=== PATIENT | male | born 1965 | race Caucasian/White ===

== ENCOUNTER 2017-03-13 19:33 | Emergency (ER) | payer BC | END 2017-03-13 20:15 | disposition left against medical advice (07) | LOC: ED 19:33 | DX: Z53.9 Procedure and treatment not carried out, unspecified reason (principal) ==

== ENCOUNTER 2020-12-11 02:16 | Emergency (ER) | payer BC ==
[2020-12-11] MEDS ORDERED: Sodium Chloride 0.9% 1000 ML 1,000 ML IV SCH (03:00)
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
[2020-12-11] MEDS ORDERED: Sodium Chloride 0.9% 1000 ML 1,000 ML ONE (03:04)
[2020-12-11 03:20] LABS: BASOPHIL % 0.3 % (0.0-0.4); Basophil (Absolute #) 0.02 (0-0.4); Eosinophil % 3.3 % (0.00-5.0); Eosinophil (Absolute #) 0.24 (0-0.5); Hematocrit 40.8 % (42-50); Hemoglobin 13.9 gm/dl (12.5-18.0); Lymphocyte (Absolute #) 3.01 (1.0-4.6); Mean Cell Volume 93.6 fl (78-100); Mean Corpuscular Hemoglobin 31.9 pg (26-32); Mean Corpuscular Hgb Concent. 34.1 g/dl (32-36); Mean Platelet Volume 9.6 fl (7.5-11.0); Monocyte (Absolute #) 0.98 (0.0-1.3); Monocytes % 13.3 % (0.0-12.0); Neutrophil % 42.1 % (36.0-66.0); Platelet Count 224 K/mm3 (150-450); Red Blood Count 4.36 M/mm3 (4.1-5.6); Red Cell Distribution Width 12.5 % (11.5-14.0); White Blood Count 7.4 K/mm3 (4.0-10.5)
[2020-12-11 03:38] LABS: ALBUMIN 4.1 g/dL (3.5-5.0); ALKALINE PHOSPHATASE 49 U/L (38-126); ANION GAP 11.5 MEQ/L (5-15); BLOOD UREA NITROGEN 21 mg/dL (9-20); CHLORIDE 106 mmol/L (98-107); Calcium 8.7 mg/dL (8.4-10.2); Carbon Dioxide 22 mmol/L (22-30); Creatinine 1 0.83 mg/dL (0.66-1.25); EST GLOMERULAR FILTRATION RATE > 60.0 ML/MIN; Glucose 108 mg/dL (74-106); Potassium 3.6 mmol/L (3.5-5.1); SGOT/AST 27 U/L (17-59); SGPT/ALT 21 U/L (0-50); SODIUM 136 mmol/L (137-145); Total Protein 6.5 g/dL (6.3-8.2)
[2020-12-11 04:28] LABS: Appearance CLEAR (CLEAR); Specific Gravity >=1.030 (1.005-1.025)
[2020-12-11 04:29] LABS: Bacteria NONE SEEN /HPF (NEGATIVE); Bilirubin NEGATIVE (NEGATIVE); Blood NEGATIVE Ery/ul (0-5); Epithelial Cells OCCASIONAL /HPF (FEW); Glucose NEGATIVE (NEGATIVE); Ketones NEGATIVE (NEGATIVE); Leukocyte Esterase NEGATIVE (NEGATIVE); Mucus SLIGHT /HPF (NEGATIVE); Nitrite NEGATIVE (NEGATIVE); Ph 6.5 (5-6); Protein,Urine Dip NEGATIVE (Negative); RBC NONE SEEN /HPF (0-2); Urobilinogen 0.2 mg/dL (0-1); WBC NONE SEEN /HPF (0-5)
[2020-12-11 04:41] VITALS: O2SAT 98
[2020-12-11 04:45] VITALS: BP 104/65; PULSE 66
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
== END 2020-12-11 04:45 | disposition home or self-care (01) ==
LOC: ED 02:16
DX: M79.18 Myalgia, other site (principal); R11.2 Nausea with vomiting, unspecified; R51.9 Headache, unspecified; V43.54XA Car driver injured in collision with van in traffic accident, initial encounter; Z79.899 Other long term (current) drug therapy
CPT/HCPCS: 36000; 36415; 70450; 71045; 80053; 81001; 84484; 85025; 93005; 93041; 94760; 99285

== ENCOUNTER 2022-03-02 01:35 | Emergency (ER) | payer BC ==
--- NOTE | 2022-03-02 02:16 | ERPHSYRPT ---
- History of Present Illness Source: patient Exam Limitations: no limitations Patient Subjective Stated Complaint: pt states he has had left low back painthat began yesterday, that radiates down leg. pt states it sharp and stabbing and constant. Triage Nursing Assessment: pt alert and oriented, sitting upright with legs off bed bracing self, pt states he is having pain 10/10 in back and down left leg Physician History: 56 yo wm w L lumbar pain x1 day w radiation to his L thigh. Pain is 10/10 and described as pressure. It is worse w movement. He denies injury/dysuria/hematuria/fever. He had similar pain on the R side several days ago. Timing/Duration: other (1 day) Method of Injury: unknown Quality: pressure Back Pain Location: paraspinous muscles (Left) Back Pain Radiation: upper legs (L thigh) Severity of Pain-Max: severe Severity of Pain-Current: severe Modifying Factors: Improves With: movement Associated Symptoms: denies symptoms Allergies/Adverse Reactions: No Known Drug Allergies Allergy (Verified 12/11/20 02:39) Home Medications: Atorvastatin Calcium [Lipitor 40Mg] 40 mg PO DAILY 01/15/16 [History] Lisinopril 5 mg [Zestril 5 MG] 5 mg PO DAILY 01/15/16 [History] Sertraline HCl 50 mg [Zoloft 50 mg Tablet] 50 mg PO DAILY 01/15/16 [History] Hx Tetanus, Diphtheria Vaccination/Date Given: Yes Hx Influenza Vaccination/Date Given: Yes (2015) Hx Pneumococcal Vaccination/Date Given: No Travel Risk - International Travel Have you traveled outside of the country in past 3 weeks: No - Coronavirus Screening Are you exhibiting any of the following symptoms?: No Close contact with a COVID-19 positive Pt in past 14-21 Days: No - Vaccine Status Have you recieved a Covid-19 vaccination: 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: [employer] - Vaccination Dates Date of 2cond Vaccination (if applicable): unknown - Review of Systems Constitutional: No Symptoms Eyes: No Symptoms Ears, Nose, & Throat: No Symptoms Respiratory: No Symptoms Cardiac: No Symptoms Abdominal/Gastrointestinal: No Symptoms Genitourinary Symptoms: No Symptoms Musculoskeletal: Back Pain Skin: No Symptoms Neurological: No Symptoms Psychological: No Symptoms Endocrine: No Symptoms Hematologic/Lymphatic: No Symptoms Immunological/Allergic: No Symptoms - Past Medical History Pertinent Past Medical History: Yes Neurological History: No Pertinent History Cardiac History: No Pertinent History Respiratory History: No Pertinent History Endocrine Medical History: No Pertinent History Musculoskeletal History: No Pertinent History Other Medical History: cardiac stents - Past Surgical History Past Surgical History: Yes Cardiac: Cardiac Stent Other Surgical History: 3 cardiac stent - Social History Smoking Status: Former smoker How long have you smoked: YRS Exposure to second hand smoke: No Drug Use: none Patient Lives Alone: No - Nursing Vital Signs Nursing Vital Signs: Initial Vital Signs Temperature 97.7 F 03/02/22 01:39 Respiratory Rate 18 03/02/22 01:39 Blood Pressure 129/85 03/02/22 01:39 O2 Sat by Pulse Oximetry 99 03/02/22 01:39 Pain Scale Pain Intensity [Left Back] 10 Pain Intensity 6 WNL - Physical Exam General Appearance: no apparent distress Eye Exam: PERRL/EOMI, eyes nml inspection Ears, Nose, Throat Exam: normal ENT inspection, TMs normal, pharynx normal, moist mucous membranes Neck Exam: normal inspection, non-tender, supple, full range of motion, No meningismus, No mass, No Brudzinski, No Kernig's Respiratory Exam: normal breath sounds, lungs clear, airway intact, No respiratory distress Cardiovascular Exam: regular rate/rhythm, normal heart sounds, normal peripheral pulses, capillary refill <2 sec, No murmur Gastrointestinal Exam: soft, normal bowel sounds, No tenderness Back Exam: point tenderness (L lumbar paraspinous TTP/No pain w stiff leg raises B), No vertebral tenderness Extremity Exam: normal inspection, normal range of motion, pelvis stable Neurologic Exam: alert, oriented x 3, cooperative, 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 as tested, normal mood/affect, nml cerebellar function, nml station & gait, sensation nml, No motor deficits, No sensory deficit Skin Exam: normal color, warm, dry Lymphatic Exam: No adenopathy SpO2 Interpretation: normal SpO2: 99 O2 Delivery: Room Air - Course Nursing assessment & vital signs reviewed: Yes - CT Exams Abdomen/Pelvis CT Interpretation: Tele-radiologist Report (Mild bowel wall thickening/No stones/Mild to marked spinal canal stenosis due to DDD) Ordered Tests: Active Orders 24 hr Category Date Time Status ABDOMEN AND PELVIS W/0 CONTRAS [CT] Stat Exams 03/02/22 02:13 Taken UA W/RFX CULTURE Stat Lab 03/02/22 02:18 Completed Medication Summary Discontinued Medications Generic Name Dose Route Start Last Admin Trade Name Tan PRN Reason Stop Dose Admin Ketorolac Tromethamine 60 mg 03/02/22 02:40 03/02/22 02:42 Ketorolac Tromethamine 30 Mg/Ml Inj IM 03/02/22 02:41 60 mg STAT ONE Administration Ketorolac Tromethamine Confirm 03/02/22 02:41 Ketorolac Tromethamine 30 Mg/Ml Inj Administered 03/02/22 02:42 Dose 60 mg .ROUTE .STK-MED ONE Lab/Rad Data: Laboratory Results 03/02/22 Range/Units 02:18 Urinalys Dipstick Clnc MAIN LAB Urine Color YELLOW (YELLOW) Urine Appearance CLEAR (CLEAR) Urine pH 5.5 (5-6) Ur Specific [place] >=1.030 A (1.005-1.025) POC Urine Protein Conf NEGATIVE (Negative) Urine Ketones NEGATIVE (NEGATIVE) Urine Nitrite NEGATIVE (NEGATIVE) Urine Bilirubin NEGATIVE (NEGATIVE) Urine Urobilinogen 0.2 (0-1) mg/dL Urine Leukocytes NEGATIVE (NEGATIVE) Urine WBC (Auto) NONE (0-5) /HPF Urine RBC (Auto) NONE (0-2) /HPF U Epithel Cells (Auto) NONE (FEW) /HPF Urine Bacteria (Auto) NONE (NEGATIVE) /HPF Urine RBC NEGATIVE (0-5) Deven/ul Ur Culture Indicated? NO Urine Glucose NEGATIVE (NEGATIVE) mg/dL - Progress Progress: improved Progress Note: 03/02/22 03:19 60mg IM Toradol Counseled pt/family regarding: lab results, diagnosis, need for follow-up, rad results - Departure Departure Disposition: Home Clinical Impression: Lumbar pain Condition: Stable Critical Care Time: No Referrals: BEBETO ROBERTSON [Primary Care Provider] - Follow up/PCP as directed Instructions: Low Back Pain (DC), Sciatica (DC) Additional Instructions: Rest/heat/Massage Toradol/Norflex as needed for pain Follow up with your family Prescriptions: Orphenadrine Citrate 100 mg [Norflex 100 MG Tablet] 100 mg PO BID PRN PRN #14 tab PRN Reason: Pain Ketorolac Trometh 10 mg Tab [TORAdol 10 MG TABLET] 10 mg PO TID PRN PRN #14 tablet PRN Reason: Pain
[2022-03-02] MEDS ORDERED: TORAdol 30 mg Injection IM ONE (02:40)
[2022-03-02] MEDS ORDERED: TORAdol 30 mg Injection ONE (02:41)
[2022-03-02 03:04] LABS: Appearance CLEAR (CLEAR); Bilirubin NEGATIVE (NEGATIVE); Glucose NEGATIVE (NEGATIVE); Ketones NEGATIVE (NEGATIVE); Specific Gravity >=1.030 (1.005-1.025)
[2022-03-02 03:05] VITALS: BP 121/84; PULSE 81
[2022-03-02 03:05] LABS: Dipstick done @ ? MAIN LAB; Nitrite NEGATIVE (NEGATIVE); Ph 5.5 (5-6); Protein,Urine Dip NEGATIVE (Negative); RBC NEGATIVE Ery/ul (0-5); Urobilinogen 0.2 mg/dL (0-1)
[2022-03-02 03:06] LABS: Urine Cultured Indicated? NO
[2022-03-02 03:24] VITALS: O2SAT 99
--- NOTE | 2022-03-02 08:56 | XRAY ---
Indication: Left flank pain. Multiple contiguous axial images obtained through the abdomen and pelvis without contrast using renal stone protocol. Comparison: None Lung bases clear. Heart not enlarged. No renal calculus or evidence for obstructive uropathy in either system. Noncontrasted stomach and bowel loops appear nonobstructed. Several small bowel loops are mildly fluid distended with circumferential wall thickening and fluid leveling, ileus versus enteritis. Normal appendix. No free fluid/air. Tiny splenic calcified granulomas. Remaining liver, gallbladder, pancreas, spleen, adrenal glands, kidneys, ureters, and bladder are unremarkable for noncontrast exam. Minimal aortoiliac calcifications without AAA. Osseous structures intact with minimal degenerative changes throughout the spine. No ventral or inguinal hernias. Impression: 1. Negative renal calculus or evidence for obstructive uropathy. 2. Mild fluid distended small bowel loops with wall thickening and fluid leveling, ileus versus enteritis. Comment: Preliminary interpretation made by [facility]. No critical discrepancy.
== END 2022-03-02 03:33 | disposition home or self-care (01) ==
LOC: ED 01:35
DX: M54.50 Low back pain, unspecified (principal); Z79.899 Other long term (current) drug therapy
CPT/HCPCS: 74176; 81015; 96372; 99283; J1885